=== PATIENT | male | born 1965 | race African-American/Black ===

== ENCOUNTER 2019-06-14 16:23 | Inpatient (IN) | payer OTHER ==
[~2019-06-14] VITALS: Ht 182.9 cm; Wt 111.6 kg
[2019-06-14] MEDS ORDERED: CYCL10 PO (18:52)
[2019-06-14] MEDS ORDERED: DULO20CA30 PO (18:52)
[2019-06-14] MEDS ORDERED: PREG25 PO (18:52)
[2019-06-14 19:23] LABS: BASOPHILS % (AUTO) 0.2 % (0.0-2.0); EOSINOPHILS % (AUTO) 0.1 % (1.0-6.0); HEMATOCRIT 39.1 % (41-53); HEMOGLOBIN 12.6 g/dL (13.5-17.5); LYMPHOCYTES # (AUTO) 0.7 K/uL (1.0-4.8); LYMPHOCYTES % (AUTO) 10.3 % (22.0-44.0); MEAN CORPUSCULAR HEMOGLOBIN 27.6 pg (26.0-34.0); MEAN CORPUSCULAR HGB CONC 32.3 G/dL (31.0-37.0); MEAN CORPUSCULAR VOLUME 85 fL (80-100); MONOCYTES # (AUTO) 0.6 K/uL (0.1-1.0); MONOCYTES % (AUTO) 7.7 % (2.0-9.0); NEUTROPHILS # (AUTO) 5.9 K/uL (1.8-7.7); NEUTROPHILS % (AUTO) 81.7 % (40.0-70.0); PLATELET COUNT (AUTO) 292 K/uL (150-450); RED BLOOD CELL COUNT(AUTO) 4.58 MIL/uL (4.50-5.90); RED CELL DISTRIBUTION WIDTH 15.2 % (11.5-14.5)
[2019-06-14 19:44] LABS: ANION GAP 13 mmol/L (8-16); CALCIUM, TOTAL 9.7 mg/dL (8.8-10.5); CARBON DIOXIDE 24 mmol/L (22-29); CHLORIDE 98 mmol/L (98-107); CREATININE 1.11 mg/dL (0.60-1.30); GLOMERULAR FILTR. RATE CALC > 60 mL/min (>60); GLUCOSE,RANDOM 120 mg/dL (70-110); POTASSIUM 3.9 mmol/L (3.5-5.1); SODIUM SERUM 135 mmol/L (136-145); UREA NITROGEN, BLOOD 5 mg/dL (7-18)
[2019-06-14] MEDS ORDERED: LORazepam 2 MG TABLET PO ONE (19:45)
[2019-06-14] MEDS ORDERED: HALOPERIDOL 5 MG TABLET PO ONE (19:45)
[2019-06-14 19:50] LABS: ALANINE AMINOTRANSFERASE 60 U/L (12-78); ALBUMIN 4.2 g/dL (3.4-5.0); ALKALINE PHOSPHATASE 69 U/L (46-116); ASPARTATE AMINOTRANSFERASE 37 U/L (15-37); BILIRUBIN,TOTAL 0.6 mg/dL (0.1-1.0); TOTAL PROTEIN, SERUM 8.5 g/dL (6.4-8.2)
[2019-06-14 20:08] LABS: AMPHET/METH SCREEN,URINE NEGATIVE (NEGATIVE); BARBITURATE SCREEN, URINE NEGATIVE (NEGATIVE); BENZODIAZEPINES SCREEN,URINE NEGATIVE (NEGATIVE); CANNABINOID SCREEN,URINE POSITIVE (NEGATIVE); COCAINE SCREEN,URINE NEGATIVE (NEGATIVE); METHADONE SCREEN, URINE NEGATIVE (NEGATIVE); OPIATE SCREEN,URINE NEGATIVE (NEGATIVE)
[2019-06-14 20:14] LABS: PHENCYCLIDINE SCREEN,URINE NEGATIVE (NEGATIVE)
[2019-06-14] MEDS ORDERED: ZOLPIDEM TARTRATE 10 MG TABLET PO PRN (20:45)
[2019-06-14] MEDS ORDERED: HALOPERIDOL 5 MG TABLET PO PRN (20:45)
[2019-06-15 02:50] VITALS: BP 142/91
[2019-06-15] MEDS ORDERED: MAGNESIUM HYDROXIDE SUSPENSION 30 ML UDCUP PO PRN (08:30)
[2019-06-15] MEDS ORDERED: ALBUTEROL SULFATE HFA 90 MCG/PUFF 8 GM INHALER IH PRN (08:30)
[2019-06-15] MEDS ORDERED: BACITRACIN 28.4 GM OINTMENT TP PRN (08:30)
[2019-06-15] MEDS ORDERED: IBUPROFEN 600 MG TABLET PO PRN (08:30)
[2019-06-15] MEDS ORDERED: PETROLATUM,WHITE 28 GM JELLY TP PRN (08:30)
[2019-06-15] MEDS ORDERED: MAG HYDROX/AL HYDROX/SIMETH ES 30 ML SUSPENSION UDCUP PO PRN (08:30)
[2019-06-15] MEDS ORDERED: LOPERAMIDE HCL 2 MG CAPSULE PO PRN (08:30)
[2019-06-15] MEDS ORDERED: CloNIDine HCL 0.1 MG TABLET PO PRN (08:30)
[2019-06-15] MEDS ORDERED: ONDANSETRON HCL 4 MG TABLET PO PRN (08:30)
[2019-06-15] MEDS ORDERED: BENZOCAINE/MENTHOL LOZENGE MM PRN (08:30)
[2019-06-15] MEDS: DIVALPROEX SODIUM 500 MG ER TABLET PO SCH ×2 (09:48→17:21)
[2019-06-15] MEDS: RisperiDONE 2 MG TABLET PO SCH ×2 (09:48→17:21)
[2019-06-15] MEDS: OMEPRAZOLE 20 MG CAPSULE PO SCH (09:48)
[2019-06-15] MEDS: DOCUSATE SODIUM 100 MG CAPSULE PO SCH (09:48)
[2019-06-15] MEDS: LORazepam 2 MG TABLET PO PRN (17:21)
[2019-06-15 18:45] VITALS: BP 134/84
[2019-06-16 06:35] LABS: CHOL/HDL RATIO 3.9 (4.2-7.3)
[2019-06-16] MEDS: DIVALPROEX SODIUM 500 MG ER TABLET PO SCH ×2 (08:31→16:44)
[2019-06-16] MEDS: RisperiDONE 2 MG TABLET PO SCH ×2 (08:31→16:44)
[2019-06-16] MEDS: DOCUSATE SODIUM 100 MG CAPSULE PO SCH (08:31)
[2019-06-16] MEDS: OMEPRAZOLE 20 MG CAPSULE PO SCH (08:31)
[2019-06-16] MEDS: DULoxetine HCL 60 MG CAPSULE PO SCH (15:12)
[2019-06-17] MEDS: DOCUSATE SODIUM 100 MG CAPSULE PO SCH (08:30)
[2019-06-17] MEDS: DIVALPROEX SODIUM 500 MG ER TABLET PO SCH ×2 (08:30→16:20)
[2019-06-17] MEDS: OMEPRAZOLE 20 MG CAPSULE PO SCH (08:30)
[2019-06-17] MEDS: RisperiDONE 2 MG TABLET PO SCH ×2 (08:30→16:20)
[2019-06-17] MEDS: DULoxetine HCL 60 MG CAPSULE PO SCH (08:31)
[2019-06-17 13:24] VITALS: BP 132/86
[2019-06-17] MEDS: ACETAMINOPHEN 325 MG TABLET PO PRN (13:24)
[2019-06-17 17:05] VITALS: BP 148/93
[2019-06-17] MEDS: LORazepam 2 MG TABLET PO PRN (20:23)
[2019-06-18] MEDS: DULoxetine HCL 60 MG CAPSULE PO SCH (08:28)
[2019-06-18] MEDS: DIVALPROEX SODIUM 500 MG ER TABLET PO SCH ×2 (08:28→16:19)
[2019-06-18] MEDS: DOCUSATE SODIUM 100 MG CAPSULE PO SCH (08:28)
[2019-06-18] MEDS: OMEPRAZOLE 20 MG CAPSULE PO SCH (08:28)
[2019-06-18] MEDS: RisperiDONE 2 MG TABLET PO SCH ×2 (08:29→16:19)
[2019-06-18 09:20] VITALS: BP 137/88
[2019-06-18 12:29] VITALS: BP 136/84
[2019-06-18] MEDS: ACETAMINOPHEN 325 MG TABLET PO PRN (12:29)
[2019-06-18 13:29] VITALS: BP 136/84
[2019-06-18 18:12] VITALS: BP 132/81
[2019-06-19 02:33] VITALS: BP 112/84
[2019-06-19] MEDS: LORazepam 2 MG TABLET PO PRN (02:33)
[2019-06-19] MEDS: DULoxetine HCL 60 MG CAPSULE PO SCH (08:19)
[2019-06-19] MEDS: OMEPRAZOLE 20 MG CAPSULE PO SCH (08:19)
[2019-06-19] MEDS: RisperiDONE 2 MG TABLET PO SCH (08:19)
[2019-06-19] MEDS: DOCUSATE SODIUM 100 MG CAPSULE PO SCH (08:19)
[2019-06-19] MEDS: DIVALPROEX SODIUM 500 MG ER TABLET PO SCH (08:19)
[2019-06-19 08:37] VITALS: BP 128/89
[2019-06-19] MEDS ORDERED: RISP2 PO ×2 (12:30→13:35)
[2019-06-19] MEDS ORDERED: DIVA500T52 PO ×2 (12:30→13:35)
[2019-06-19] MEDS ORDERED: DSS100 PO (12:30)
[2019-06-19] MEDS ORDERED: OMEP20 PO (12:30)
== END 2019-06-19 15:15 | disposition home or self-care (01) | DRG 885 ==
LOC: EMS 16:24 → 3EC 06-15 01:12 → EMS 06-15 01:47
PROVIDERS: ADMIT Psychiatry & Neurology Child & Adolescent Psychiatry; ATTEND Psychiatry & Neurology Child & Adolescent Psychiatry
DX: F31.2 Bipolar disorder, current episode manic severe with psychotic features (principal); F12.10 Cannabis abuse, uncomplicated; F43.10 Post-traumatic stress disorder, unspecified; G47.00 Insomnia, unspecified; K59.00 Constipation, unspecified; F41.9 Anxiety disorder, unspecified; Z79.899 Other long term (current) drug therapy; Z91.041 Radiographic dye allergy status; Z56.0 Unemployment, unspecified
CPT/HCPCS: G0480

== ENCOUNTER 2020-04-17 04:11 | Inpatient (IN) | payer OTHER ==
[~2020-04-17] VITALS: Ht 182.9 cm; Wt 112.5 kg
[~2020-04-17 04:11] MED LIST: DIVA500T52 PO; DSS100 PO; DULO20CA30 PO; OMEP20 PO; RISP2TAB23 PO
[2020-04-17 05:05] LABS: BASOPHILS % (AUTO) 0.3 % (0.0-2.0); EOSINOPHILS % (AUTO) 0.3 % (1.0-6.0); HEMATOCRIT 37.6 % (41-53); HEMOGLOBIN 12.7 g/dL (13.5-17.5); LYMPHOCYTES % (AUTO) 9.8 % (22.0-44.0); MEAN CORPUSCULAR HEMOGLOBIN 27.8 pg (26.0-34.0); MEAN CORPUSCULAR HGB CONC 33.6 G/dL (31.0-37.0); MEAN CORPUSCULAR VOLUME 83 fL (80-100); MONOCYTES # (AUTO) 0.7 K/uL (0.1-1.0); MONOCYTES % (AUTO) 6.5 % (2.0-9.0); NEUTROPHILS # (AUTO) 8.8 K/uL (1.8-7.7); NEUTROPHILS % (AUTO) 83.1 % (40.0-70.0); PLATELET COUNT (AUTO) 298 K/uL (150-450); RED BLOOD CELL COUNT(AUTO) 4.56 MIL/uL (4.50-5.90); RED CELL DISTRIBUTION WIDTH 14.2 % (11.5-14.5)
[2020-04-17 05:18] LABS: ALANINE AMINOTRANSFERASE 57 U/L (12-78); ALBUMIN 4.3 g/dL (3.4-5.0); ALKALINE PHOSPHATASE 61 U/L (46-116); ANION GAP 11 mmol/L (8-16); ASPARTATE AMINOTRANSFERASE 28 U/L (15-37); BILIRUBIN,TOTAL 0.6 mg/dL (0.1-1.0); CALCIUM, TOTAL 8.9 mg/dL (8.8-10.5); CARBON DIOXIDE 27 mmol/L (22-29); CHLORIDE 97 mmol/L (98-107); CREATININE 1.28 mg/dL (0.60-1.30); GLOMERULAR FILTR. RATE CALC > 60 mL/min (>60); GLUCOSE,RANDOM 149 mg/dL (70-110); POTASSIUM 3.3 mmol/L (3.5-5.1); SODIUM SERUM 135 mmol/L (136-145); TOTAL PROTEIN, SERUM 8.3 g/dL (6.4-8.2)
[2020-04-17 05:29] LABS: VALPROIC ACID < 3 mcg/mL (50-100)
[2020-04-17 05:37] LABS: UREA NITROGEN, BLOOD 13 mg/dL (7-18)
[2020-04-17] MEDS ORDERED: POTASSIUM CHLORIDE 20 MEQ ER TABLET PO ONE (05:45)
[2020-04-17] MEDS ORDERED: LORazepam 1 MG TABLET PO ONE (09:15)
[2020-04-17] MEDS ORDERED: HALOPERIDOL 5 MG TABLET PO ONE (09:15)
[2020-04-17 09:42] LABS: AMPHET/METH SCREEN,URINE NEGATIVE (NEGATIVE); BARBITURATE SCREEN, URINE NEGATIVE (NEGATIVE); BENZODIAZEPINES SCREEN,URINE NEGATIVE (NEGATIVE); CANNABINOID SCREEN,URINE POSITIVE (NEGATIVE); COCAINE SCREEN,URINE NEGATIVE (NEGATIVE); METHADONE SCREEN, URINE NEGATIVE (NEGATIVE); OPIATE SCREEN,URINE NEGATIVE (NEGATIVE); PHENCYCLIDINE SCREEN,URINE NEGATIVE (NEGATIVE)
[2020-04-17] MEDS ORDERED: LOPERAMIDE HCL 2 MG CAPSULE PO PRN (10:15)
[2020-04-17] MEDS ORDERED: PROMETHAZINE HCL 25 MG TABLET PO PRN (10:15)
[2020-04-17] MEDS ORDERED: OLANZapine 5 MG RAPDIS TABLET PO PRN (10:15)
[2020-04-17] MEDS ORDERED: ZOLPIDEM TARTRATE 10 MG TABLET PO PRN (10:15)
[2020-04-17] MEDS ORDERED: MAG HYDROX/AL HYDROX/SIMETH ES 30 ML SUSPENSION UDCUP PO PRN (10:15)
[2020-04-17] MEDS ORDERED: MAGNESIUM HYDROXIDE SUSPENSION 30 ML UDCUP PO PRN (10:15)
[2020-04-17] MEDS ORDERED: TUBERCULIN, PURIFIED PROTEIN DERIVATIVE 5 TU/0.1 ML SYRINGE ID ONE (10:15)
[2020-04-17] MEDS ORDERED: GuaiFENesin/D-METHORPHAN [SUGAR-FREE] 200-20MG/10 ML SYRUP UDCUP PO PRN (10:15)
[2020-04-17] MEDS ORDERED: ACETAMINOPHEN 325 MG TABLET PO PRN (10:15)
[2020-04-17] MEDS ORDERED: HydrOXYzine PAMOATE 50 MG CAPSULE PO PRN (10:15)
[2020-04-17] MEDS ORDERED: LORazepam 2 MG TABLET PO PRN (10:15)
[2020-04-17 12:27] VITALS: BP 149/75
[2020-04-17] MEDS ORDERED: CloNIDine HCL 0.1 MG TABLET PO PRN (15:15)
[2020-04-17] MEDS: THIAMINE 100 MG TABLET PO SCH (16:21)
[2020-04-17 17:00] VITALS: BP 128/92
[2020-04-17] MEDS: OLANZapine 5 MG RAPDIS TABLET PO SCH (20:03)
[2020-04-17] MEDS: DIVALPROEX SODIUM 500 MG ER TABLET PO SCH (20:03)
[2020-04-17] MEDS ORDERED: MIRTAZAPINE 15 MG TABLET PO SCH (21:00)
[2020-04-17] MEDS ORDERED: ESZOPICLONE 3 MG TABLET PO SCH (21:00)
[2020-04-18] MEDS: DOCUSATE SODIUM 100 MG CAPSULE PO SCH (08:40)
[2020-04-18] MEDS: THIAMINE 100 MG TABLET PO SCH ×2 (08:40→16:24)
[2020-04-18] MEDS: OMEPRAZOLE 20 MG CAPSULE PO SCH (08:40)
[2020-04-18] MEDS: FOLIC ACID 1 MG TABLET PO SCH (08:40)
[2020-04-18] MEDS: NALTREXONE HCL 50 MG TABLET PO SCH (08:40)
[2020-04-18] MEDS: AmLODIPine BESYLATE 5 MG TABLET PO SCH (08:40)
[2020-04-18] MEDS: DULoxetine HCL 60 MG CAPSULE PO SCH (08:41)
[2020-04-18] MEDS: MULTIVITAMINS WITH MINERALS, THERAPEUTIC TABLET PO SCH (08:41)
[2020-04-18 09:00] VITALS: BP 115/94
[2020-04-18 09:42] LABS: BASOPHILS % (AUTO) 0.4 % (0.0-2.0); HEMATOCRIT 40.6 % (41-53); HEMOGLOBIN 13.2 g/dL (13.5-17.5); LYMPHOCYTES % (AUTO) 30.2 % (22.0-44.0); MEAN CORPUSCULAR HEMOGLOBIN 27.1 pg (26.0-34.0); MEAN CORPUSCULAR HGB CONC 32.4 G/dL (31.0-37.0); MEAN CORPUSCULAR VOLUME 84 fL (80-100); MONOCYTES # (AUTO) 0.6 K/uL (0.1-1.0); MONOCYTES % (AUTO) 8.3 % (2.0-9.0); NEUTROPHILS # (AUTO) 4.1 K/uL (1.8-7.7); NEUTROPHILS % (AUTO) 60.1 % (40.0-70.0); PLATELET COUNT (AUTO) 304 K/uL (150-450); RED BLOOD CELL COUNT(AUTO) 4.86 MIL/uL (4.50-5.90); RED CELL DISTRIBUTION WIDTH 14.6 % (11.5-14.5)
[2020-04-18 10:18] LABS: HEMOGLOBIN A1C 6.1 % (3.8-5.6)
[2020-04-18 10:19] LABS: ALANINE AMINOTRANSFERASE 66 U/L (12-78); ALKALINE PHOSPHATASE 57 U/L (46-116); ANION GAP 12 mmol/L (8-16); ASPARTATE AMINOTRANSFERASE 38 U/L (15-37); BILIRUBIN,TOTAL 0.7 mg/dL (0.1-1.0); CALCIUM, TOTAL 8.9 mg/dL (8.8-10.5); CARBON DIOXIDE 25 mmol/L (22-29); CHLORIDE 100 mmol/L (98-107); CHOL/HDL RATIO 5.3 (4.2-7.3); CHOLESTEROL 176 mg/dL (131-200); CREATININE 1.17 mg/dL (0.60-1.30); FREE T4 (FREE THYROXINE) 1.04 ng/dL (0.76-1.46); GLOMERULAR FILTR. RATE CALC > 60 mL/min (>60); GLUCOSE,RANDOM 122 mg/dL (70-110); HDL CHOLESTEROL 33 mg/dL (40-60); LDL CHOL (CALC.) 125 mg/dL (0-130); POTASSIUM 3.3 mmol/L (3.5-5.1); SODIUM SERUM 137 mmol/L (136-145); THYROID STIMULATING HORMONE 1.07 uIU/mL (0.36-3.74); TOTAL PROTEIN, SERUM 8.3 g/dL (6.4-8.2); TRIGLYCERIDES 88 mg/dL (15-150); UREA NITROGEN, BLOOD 7 mg/dL (7-18)
[2020-04-18 17:00] VITALS: BP 133/87
[2020-04-18] MEDS ORDERED: POTASSIUM CHLORIDE 20 MEQ ER TABLET PO ONE (17:30)
[2020-04-18] MEDS ORDERED: ESZOPICLONE 3 MG TABLET PO PRN (19:15)
[2020-04-18] MEDS ORDERED: MIRT-89 PO (19:15)
[2020-04-18] MEDS ORDERED: OLAN5TAB30 PO (19:15)
[2020-04-18] MEDS ORDERED: NALT50TA PO (19:15)
[2020-04-18] MEDS ORDERED: DULO60CA44 PO (19:15)
[2020-04-18] MEDS ORDERED: DIVA500T52 PO (19:15)
[2020-04-18] MEDS ORDERED: DOCU-275 PO (19:20)
[2020-04-18] MEDS: DIVALPROEX SODIUM 500 MG ER TABLET PO SCH (20:08)
[2020-04-18] MEDS: OLANZapine 5 MG RAPDIS TABLET PO SCH (20:10)
[2020-04-18] MEDS ORDERED: MIRTAZAPINE 30 MG TABLET PO SCH (21:00)
[2020-04-19 08:22] VITALS: BP 143/95
[2020-04-19] MEDS: MULTIVITAMINS WITH MINERALS, THERAPEUTIC TABLET PO SCH (09:06)
[2020-04-19] MEDS: THIAMINE 100 MG TABLET PO SCH ×2 (09:06→16:16)
[2020-04-19] MEDS: OMEPRAZOLE 20 MG CAPSULE PO SCH (09:06)
[2020-04-19] MEDS: DOCUSATE SODIUM 100 MG CAPSULE PO SCH (09:07)
[2020-04-19] MEDS: FOLIC ACID 1 MG TABLET PO SCH (09:07)
[2020-04-19] MEDS: NALTREXONE HCL 50 MG TABLET PO SCH (09:07)
[2020-04-19] MEDS: AmLODIPine BESYLATE 5 MG TABLET PO SCH (09:07)
[2020-04-19] MEDS: DULoxetine HCL 60 MG CAPSULE PO SCH (09:11)
[2020-04-19] MEDS ORDERED: MIRT30 PO (11:24)
[2020-04-19 19:28] VITALS: BP 126/89
[2020-04-19] MEDS ORDERED: AMLO5TAB9 PO (19:46)
[2020-04-19] MEDS: DIVALPROEX SODIUM 500 MG ER TABLET PO SCH (20:19)
[2020-04-19] MEDS: OLANZapine 5 MG RAPDIS TABLET PO SCH (20:20)
[2020-04-19] MEDS ORDERED: MIRTAZAPINE 30 MG TABLET PO SCH (21:00)
[2020-04-20 00:36] VITALS: BP 137/83
== END 2020-04-20 03:30 | disposition home or self-care (01) | DRG 885 ==
LOC: EMS 04:11 → 3EI 10:07
PROVIDERS: ADMIT Psychiatry & Neurology Psychiatry; ATTEND Psychiatry & Neurology Psychiatry
DX: F25.8 Other schizoaffective disorders (principal); F43.10 Post-traumatic stress disorder, unspecified; D64.9 Anemia, unspecified; E87.6 Hypokalemia; F10.10 Alcohol abuse, uncomplicated; F12.90 Cannabis use, unspecified, uncomplicated; F31.9 Bipolar disorder, unspecified; I10 Essential (primary) hypertension; K21.9 Gastro-esophageal reflux disease without esophagitis; K59.00 Constipation, unspecified; Z91.14 Patient's other noncompliance with medication regimen; Z91.041 Radiographic dye allergy status; Z98.890 Other specified postprocedural states; Z79.899 Other long term (current) drug therapy
CPT/HCPCS: 83036; 84132; 84439; 84443; 86592; G0480